=== PATIENT | male | born 1930 | race American Indian/Alaskan Native ===

== ENCOUNTER 2016-08-13 10:40 | Emergency (ER) | payer OTHER ==
[2016-08-13 11:03] LABS: BASOPHILS 0.1 % (0.0-2.0); EOSINOPHILS 0.3 % (0-7); HEMATOCRIT 27.7 % (42.0-54.0); HEMOGLOBIN 8.6 g/dL (13.5-17.5); IMMATURE GRANULOCYTES 0.1 % (0-5); LYMPHOCYTES 19.1 % (15-50); MCH 24.9 pg (26.0-34.0); MCV 80.3 fL (80.0-100.0); MEAN PLATELET VOLUME 8.4 fL (7.4-10.4); MONOCYTES 14.2 % (2-11); NEUTROPHILS 66.2 % (40-80); PLATELET COUNT 206 10x3/uL (130-400); RBC 3.45 10x6/uL (4.20-6.10); WBC 7.8 10x3/uL (4.8-10.8)
[2016-08-13 11:27] LABS: ALBUMIN 2.2 g/dL (3.4-5.0); ALKALINE PHOSPHATASE 81 U/L (46-116); ALT (SGPT) 20 U/L (10-68); BILIRUBIN - TOTAL 0.43 mg/dL (0.2-1.3); CALC OSMOLALITY 268 mosm/kg (275-300); CALCIUM 8.1 mg/dL (8.5-10.1); CARBON DIOXIDE 26.5 mmol/L (21.0-32.0); CHLORIDE - SERUM 101 mmol/L (98-107); CREATINE KINASE 76 UL (21-232); GLUCOSE 101 mg/dL (74-106); POTASSIUM - SERUM 3.6 mmol/L (3.5-5.1); PROTEIN - SERUM 6.7 g/dL (6.4-8.2); SODIUM 134 mmol/L (136-145); TROPONIN-I 0.035 ng/mL (0.000-0.060); UREA NITROGEN 14 mg/dL (7-18); eGFR NON AFRICAN AMERICAN 75 mL/min (90-120)
== END 2016-08-13 13:20 | disposition home or self-care (01) ==
LOC: D.ER 10:40
PROVIDERS: Emergency Medicine
DX: R53.1 Weakness (principal); I48.91 Unspecified atrial fibrillation; D64.9 Anemia, unspecified; I10 Essential (primary) hypertension; I45.10 Unspecified right bundle-branch block